=== PATIENT | female | born 1945 | race Caucasian/White ===

== ENCOUNTER 2016-11-11 09:13 | Emergency (ER) | payer OTHER ==
[2016-11-11 09:24] VITALS: BP 119/55; PULSE 71; TEMP 98.8; BMI 29.0
[2016-11-11] MEDS ORDERED: ALBUTEROL SO4 0.083% IH SOL 2.5 MG/3 ML VIAL.NEB. NEB ONE ×4 (09:38→10:27)
[2016-11-11] MEDS ORDERED: ACETAMINOPHEN 325 MG TABLET (FP) PO ONE (10:24)
[2016-11-11] MEDS ORDERED: ACETAMINOPHEN 325 MG TABLET (FP) ONE (10:27)
--- NOTE | 2016-11-11 10:36 | PDOC ---
History of Present Illness - General Chief Complaint: Cold Symptoms Stated Complaint: COUGH, BODY ACHES, FLU Time Seen by Provider: 11/11/16 09:37 History Source: Patient Exam Limitations: No Limitations - History of Present Illness Initial Comments: 11/11/16 10:32 71 yo female here with son who tranaslates with cough and congesion x 1 week Timing/Duration: reports: week Severity: reports: mild Modifying Factors: worse with: activity Associated Symptoms: reports: fever/chills, headache, nasal drainage, wheezing. denies: sore throat Past History - Past Medical History Allergies/Adverse Reactions: Allergies Allergy/AdvReac Type Severity Reaction Status Date / Time No Known Allergies Allergy Verified 11/11/16 09:20 Home Medications: Ambulatory Orders Levothyroxine [Synthroid -] 25 mcg PO DAILY 11/11/16 Losartan Potassium 50 mg PO DAILY 11/11/16 HTN: Yes Thyroid Disease: Yes - Psycho/Social/Smoking Cessation Hx Anxiety: No Suicidal Ideation: No Smoking History: Never smoked Have you smoked in the past 12 months: No Information on smoking cessation initiated: No Hx Alcohol Use: No Drug/Substance Use Hx: No Substance Use Type: None Review of Systems - Review of Systems Constitutional: Yes: Chills, Fever, Malaise HEENTM: Yes: Nose Congestion, Throat Pain. No: Throat Swelling, Difficulty Swallowing Respiratory: Yes: Cough, Wheezing, Productive cough. No: SOB with Exertion, Hemoptysis Cardiac (ROS): No: Symptoms Reported ABD/GI: No: Symptoms Reported *Physical Exam - Vital Signs Last Vital Signs Temp Pulse Resp BP Pulse Ox 98.8 F 71 18 119/55 100 11/11/16 09:21 11/11/16 09:21 11/11/16 09:21 11/11/16 09:21 11/11/16 09:21 - Physical Exam General Appearance: Yes: Appropriately Dressed. No: Apparent Distress HEENT: positive: TMs Normal, Pharynx Normal, Nasal Congestion, Rhinorrhea Neck: positive: Tender, Supple, Lymphadenopathy (R), Lymphadenopathy (L). negative: Rigid Respiratory/Chest: positive: Wheezing. negative: Lungs Clear, Accessory Muscle Use, Labored Respiration, Decreased Breath Sounds Cardiovascular: positive: Regular Rhythm, Regular Rate. negative: Murmur Gastrointestinal/Abdominal: positive: Normal Bowel Sounds. negative: Tender ED Treatment Course - Medications Given in the ED: ED Medications Discontinued Medications Generic Name Dose Route Start Last Admin Trade Name Marilyn PRN Reason Stop Dose Admin Albuterol Sulfate 1 amp 11/11/16 09:38 11/11/16 09:41 Ventolin 0.083% Nebulizer Soln - NEB 11/11/16 09:39 1 amp ONCE ONE Administration Medical Decision Making - Medical Decision Making 11/11/16 10:34 better post 2 albuterols, tylenol in ED; will tx with doxy and albuterol MIDI *DC/Admit/Observation/Transfer Diagnosis at time of Disposition: Bronchospasm - Discharge Dispostion Disposition: HOME Condition at time of disposition: Stable Admit: No - Patient Instructions Additional Instructions: albuterol 4 times daily x 3 days; see local MD next week; return for increased symptoms - Post Discharge Activity Work/School Note: Back to Work
== END 2016-11-11 10:49 | disposition home or self-care (01) ==
LOC: JERFT 09:13
PROC: 3E0F7GC Introduction of Other Therapeutic Substance into Respiratory Tract, Via Natural or Artificial Opening (ICD-10-PCS; principal; 2016-11-11)
DX: J98.01 Acute bronchospasm (principal)
CPT/HCPCS: 94640; 99281-25